=== PATIENT | male | born 1955 | race Caucasian/White ===

== ENCOUNTER → 2019-04-20 13:50 | Outpatient (CLI) | payer OTHER, SELFPAY ==
--- NOTE | 2019-04-20 14:01 | RAD_ITS ---
STUDY: X-RAY - LUMBAR SPINE REASON FOR EXAM: Male, 64 years old. SCIATICA TECHNIQUE: 4 view(s) of the lumbar spine were obtained. COMPARISON: None FINDINGS: Normal lumbar lordosis. There is no substantial scoliosis. There is a normal alignment of the vertebrae. There is mild, multilevel endplate spondylosis of the lumbar vertebrae. Normal disc space heights. There is no demonstrated fracture. There is no demonstrated spondylolysis of the pars interarticulares. The soft tissue structures are unremarkable. RAD/L/S Spine Min 4 Views IMPRESSION: Mild multilevel spondylosis otherwise normal x-ray examination of the lumbar spine. Electronically Signed: Angely Gibson MD at 0:29 EDT , Service support ,
== END ==
PROVIDERS: PCP Family Medicine; Referring Provider Family Medicine; Visit Provider Family Medicine
DX: M54.31 Sciatica, right side (principal)
CPT/HCPCS: 72110

== ENCOUNTER → 2020-02-15 14:22 | Outpatient (CLI) | payer OTHER, SELFPAY ==
--- NOTE | 2020-02-15 14:26 | RAD_ITS ---
STUDY: X-RAY - PELVIS AND RIGHT HIP REASON FOR EXAM: Right hip and upper leg pain, suspected osteoarthritis. TECHNIQUE: 2 views of the pelvis and hip. COMPARISON: None. FINDINGS: There are pelvic phleboliths. There is vascular calcification. Normal bilateral iliac wings, sacroiliac joints and visualized sacrum. Normal bilateral superior and inferior pubic rami. Normal pubic symphysis. Normal bilateral ischial tuberosities. Normal visualized femoral head. Normal acetabulum. There marginal osteophytes of the right femoral head and moderate to severe joint space narrowing of the right superior lateral hip joint. RAD/HIP, UNI W/ Pelvis 2-3 Views IMPRESSION: Right hip arthrosis. Electronically Signed: Khadar Monroy MD at 14:47 EST Tel , Service support ,
== END ==
PROVIDERS: PCP Family Medicine; Referring Provider Family Medicine; Visit Provider Family Medicine
DX: M25.551 Pain in right hip (principal)
CPT/HCPCS: 73502

== ENCOUNTER → 2022-03-06 | Outpatient (CLI) | payer MEDICARE, SELFPAY ==
[2022-03-06 12:21] LABS: Absolute Lymphocyte Count 2.21 X10^3/uL (0.83-4.51); Basophil# 0.04 X10^3/uL; Basophil% 0.7 % (0-1); Eosinophil# 0.19 X10^3/uL; Eosinophils% 3.2 % (0-5); Hematocrit 43.5 % (40-54); Hemoglobin 14.7 g/dL (13.0-16.5); Lymphocyte # 2.21 X10^3/ul (0.83-4.51); Lymphocyte % 37.4 % (19-41); Mean Corp Hgb Conc 33.8 g/dL (32-36); Mean Corpuscular Hgb 32.9 pg (27.0-32.0); Mean Corpuscular Volume 97.3 fL (80-94); Mean Platelet Vol. 9.5 fl (6.2-12.0); Monocyte# 0.47 X10^3/uL; NRBC Flagged by Analyzer 0 % (0-5); Neutrophil # 2.98 X10^3/uL (2.7-7.7); Neutrophil % 50.4 % (47-70); Platelet Count 244 K/mm3 (150-450); RBC Distribution Width CV 11.9 % (11.6-14.6); RBC Distribution Width SD 42.2 fl (35.1-43.9); Red Blood Count 4.47 M/mm3 (4.6-6.2); White Blood Count 5.9 K/mm3 (4.4-11.0)
[2022-03-06 12:41] LABS: ALB/GLOB Ratio 1.1 RATIO (0.9-2.4); AST(SGOT) 20 U/L (15-37); Alanine Aminotransfer ALT/SGPT 37 U/L (16-61); Albumin, Serum 3.6 g/dL (3.2-5.0); Alkaline Phosphatase 90 U/L (45-117); Anion Gap 7 (5-15); BUN 13 mg/dL (7-18); BUN/Creat Ratio 15.8 RATIO (10-20); Calcium,Total 8.5 mg/dL (8.5-10.1); Chloride 105 mmol/L (98-107); Cholesterol 177 mg/dL (200); Creatinine, Serum 0.82 mg/dL (0.70-1.30); EST Glomerular Filtration Rate 99 mL/min (>60); Est Glom Filt Rate - Afr Amer 120 mL/min (>60); Globulin 3.3 g/dL (2.2-4.2); Glucose 102 mg/dL (74-106); High Density Lipoprotein 35 mg/dL; PSA,Total - Annual Screen 0.49 ng/mL (0.00-4.00); Potassium 4.2 mmol/L (3.5-5.1); Protein, Total 6.9 g/dL (6.4-8.2); Sodium Level 139 mmol/L (136-145); Triglycerides 281 mg/dL; Very Low Density Lipoprotein 56 mg/dL (5-40)
== END | disposition home or self-care (01) ==
PROVIDERS: PCP Family Medicine; Visit Provider Family Medicine
DX: Z00.00 Encounter for general adult medical examination without abnormal findings (principal); Z12.5 Encounter for screening for malignant neoplasm of prostate; R53.83 Other fatigue; E78.5 Hyperlipidemia, unspecified
CPT/HCPCS: 36415; 80053; 80061; 84153; 85025; G0103

== ENCOUNTER 2022-08-11 12:39 | Outpatient (CLI) | payer MEDICARE, SELFPAY ==
--- NOTE | 2022-08-11 12:47 | RAD_ITS ---
EXAM: XR CHEST, 2 VIEWS CLINICAL INDICATION: SOB,FATIGUE,COUGH TECHNIQUE: Frontal and lateral views of the chest. COMPARISON: No relevant prior studies available. FINDINGS: LUNGS AND PLEURAL SPACES: Unremarkable. No consolidation or edema. No pneumothorax. No effusion. HEART: Unremarkable. Cardiac silhouette not enlarged. MEDIASTINUM: Mild air bronchograms visible in the infrahilar regions best seen on the lateral view. BONES/JOINTS: Unremarkable. SOFT TISSUES: Unremarkable. RAD/Chest PA and Lateral IMPRESSION: Mild airway thickening and air bronchograms in the lung bases best seen on the lateral view. Considerations include bronchitis and asthma. No focal infiltrates or effusions. Electronically Signed: Maryana Aguayo MD at 8:17 EDT ,
[2022-08-11 15:11] LABS: Absolute Lymphocyte Count 2.07 X10^3/uL (0.83-4.51); Absolute Neutrophil Count 4.3 X10^3/uL (2.0-7.7); Basophil# 0.02 X10^3/uL; Basophil% 0.3 % (0-1); Eosinophil# 0.14 X10^3/uL; Hematocrit 43.2 % (40-54); Hemoglobin 15.3 g/dL (13.0-16.5); Lymphocyte # 2.07 X10^3/ul (0.83-4.51); Lymphocyte % 29.7 % (19-41); Mean Corp Hgb Conc 35.4 g/dL (32-36); Mean Corpuscular Hgb 33.6 pg (27.0-32.0); Mean Corpuscular Volume 94.7 fL (80-94); Mean Platelet Vol. 9.3 fl (6.2-12.0); Monocyte# 0.48 X10^3/uL; Monocyte% 6.9 % (0-10); NRBC Flagged by Analyzer 0 % (0-5); Neutrophil # 4.25 X10^3/uL (2.7-7.7); Platelet Count 218 K/mm3 (150-450); RBC Distribution Width CV 11.7 % (11.6-14.6); RBC Distribution Width SD 40.1 fl (35.1-43.9); Red Blood Count 4.56 M/mm3 (4.6-6.2)
[2022-08-11 15:53] LABS: Vitamin B12 582 pg/mL (211-911); Vitamin D,25 Hydroxy 36.8 ng/mL
[2022-08-11 16:24] LABS: ALB/GLOB Ratio 0.8 RATIO (0.9-2.4); AST(SGOT) 24 U/L (15-37); Alanine Aminotransfer ALT/SGPT 29 U/L (16-61); Albumin, Serum 3.5 g/dL (3.2-5.0); Alkaline Phosphatase 90 U/L (45-117); Anion Gap 6 (5-15); BUN 17 mg/dL (7-18); BUN/Creat Ratio 20.7 RATIO (10-20); Chloride 106 mmol/L (98-107); Creatinine, Serum 0.82 mg/dL (0.70-1.30); EST Glomerular Filtration Rate 99 mL/min (>60); Est Glom Filt Rate - Afr Amer 120 mL/min (>60); Ferritin 341 ng/mL (26-388); Globulin 4.4 g/dL (2.2-4.2); Glucose 111 mg/dL (74-106); Iron 73 ug/dL (65-175); Potassium 3.8 mmol/L (3.5-5.1); Protein, Total 7.9 g/dL (6.4-8.2); Sodium Level 137 mmol/L (136-145); Thyroid Stim Hormone (TSH) 0.44 uIU/mL (0.358-3.74)
== END 2022-08-11 23:59 | disposition home or self-care (01) ==
LOC: MTLAB 12:40
PROVIDERS: PCP Family Medicine; Referring Provider Nurse Practitioner Family; Visit Provider Nurse Practitioner Family
DX: R06.02 Shortness of breath (principal); R53.83 Other fatigue; R05.9 Cough, unspecified
CPT/HCPCS: 36415; 71046; 80053; 82306; 82607; 82728; 83540; 84443; 85025

== ENCOUNTER → 2022-10-16 | Outpatient (CLI) | payer MEDICARE, SELFPAY ==
--- NOTE | 2022-10-16 14:55 | RAD_ITS ---
EXAM: XR LEFT HUMERUS, 2 OR MORE VIEWS CLINICAL INDICATION: PAIN TECHNIQUE: Frontal and lateral (4)views of the left humerus. COMPARISON: No relevant prior studies available. FINDINGS: BONES/JOINTS: Unremarkable. No acute fracture. No subluxation. Normal alignment. Preservation of the joint space. No sclerotic or destructive changes observed. SOFT TISSUES: Unremarkable. No soft tissue swelling or gas. Fat pads of elbow are not displaced. No radiopaque foreign body. OTHER: The visualized left upper lung is clear. Visualized left upper ribs are intact. RAD/Humerus min 2 Views IMPRESSION: Negative left humerus x-rays. Electronically Signed: Lino Ulloa MD at 22:54 EDT ,
== END | disposition home or self-care (01) ==
LOC: MTRAD 14:53
PROVIDERS: PCP Family Medicine; Visit Provider Family Medicine
DX: M79.602 Pain in left arm (principal)
CPT/HCPCS: 73060

== ENCOUNTER 2022-10-29 11:30 | Outpatient (RCR) | payer MEDICARE, SELFPAY ==
--- NOTE | 2022-10-21 09:47 | HP.PTEVAL_ITS ---
Patient's Visit Information Visit Information Visit Information: CORIE VILLARREAL is a 67 year old M referred to Physical Therapy by Dr. Reginaldo Russo DO with a diagnosis of Left Arm Pain. Date of Evaluation: 10/21/22 Physical Therapist: Brittani Pickering DPT Visit Plan Frequency: 2x /Week Duration: 4 Weeks Plan: Focus on Scapular Strength/Stabilization- US PRN HEP Given IE: Posture, scap retraction, pizza carry Subjective Subjective: Left arm pain that has been nagging him for a couple months that just isn't going away. He went to see his MD who took some x-rays which were negative- and he suggested PT. The discomfort is in the deltoid and humorous of the left arm. He has the pain when he is making his bed and and putting his towel around his back. Worst: 1/10. Its a more nagging pain. Agg: internal rotation and ER Best: 0/10. Eases: rubbing it. 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 Sleeping: if will wake him up if he is sleeping on that side. He rides his bicycle a lot- he takes it to [employer] or [employer] to ride. Retired- he sits a lot and his posture is not good. Right hand dominate. Objective Objective: Posture: Fh, RS- can correct but does not maintain- does have mild guarding of the left UE Gait: no deviation- good arm swing and trunk rotation Palpation: tender along upper trap from occiput to AC Joint, medial border of the scapula and the bicipital groove ROM: Cervical/Elbow/Wrist: WFL- Shoulder: Flexion: WFL pain at end range, Abd: full with pain from 110 degrees to end range, IR: WFL with pain at end range, ER: WFL pain at end range. Strength: [employer]:WFL Elbow: 4+/5, Shoulder: Flexion: 4+/5, Extn: 4+/5, Abd: 4/5, Add: 4+/5, IR: 4/5, ER: 4-/5. Scap: fair minus Special Tests L Shoulder Empty Can - SS: Positive L Shoulder Belly Press - SupScap: Positive L Shoulder Neer - Impingement: Positive L Shoulder Greer Wade - Impingement: Positive L Shoulder Biceps Load Test - Labrum: Positive Balance/Special Test Scores Quick DASH Score: 6.8175 Goals Goal 1:: Patient will be I with HEP and progression Goal Time Frame: 4-6 Weeks Goal 2:: Patient will maintain proper posture t/o session to demo increased scap s/s Goal Time Frame: 4-6 Weeks Goal 3:: Patient will report no pain for 1 week Goal Time Frame: 4-6 Weeks Goal 4:: Patient will report 80% better Goal Time Frame: 4-6 Weeks Rehabilitation Potential Physical Therapy Diagnosis: Patient presents with hypomobility- he has decreased UE ROM, scapular strength/stabilization and muscular endurance leading to poor posture and increased pain with ADL's. Rehabilitation Potential: Good Anticipated Interventions Patient/Client Instruction: Educate patient on: Benefits of Fitness Program Therapeutic Exercise to Include: Strength training, Endurance training, Balance training, Coordination, Agility training, Body mechanics, Postural training, Flexibilty training, Gait and locomotor training, Neuromotor development, Passive ROM, Active ROM, Dynamic Lumbar Stabilization and Scapular Strength/Stabilization For the Purpose of:: To improve muscle performance and motor function TENS: Yes Cryotherapy (ice pack, ice massage): Yes Thermo therapy (hot pack): Yes Ultrasound (thermal/non thermal): Yes Text: Thank you for the opportunity to evaluate your patient. For Medicare and Medicare HMO plans, please review the plan of care and approve it. It will need to be FAXED BACK to us at [phone] for Medicare purposes. For Medicare only, by signing this I certify the plan of care. Please let me know if there are questions or concerns regarding this plan of care. Physician Signature: Date:
== END 2022-10-29 19:00 | disposition home or self-care (01) ==
LOC: PT 11:30
PROVIDERS: PCP Family Medicine; Referring Provider Family Medicine; Visit Provider Family Medicine
DX: M79.602 Pain in left arm (principal)
CPT/HCPCS: 97110; 97162

== ENCOUNTER → 2023-07-08 | Outpatient (CLI) | payer OTHER, SELFPAY ==
[2023-07-08 15:15] LABS: Absolute Lymphocyte Count 1.95 X10^3/uL (0.83-4.51); Absolute Neutrophil Count 3.4 X10^3/uL (2.0-7.7); Basophil# 0.03 X10^3/uL; Basophil% 0.5 % (0-1); Eosinophil# 0.16 X10^3/uL; Eosinophils% 2.6 % (0-5); Hematocrit 42.3 % (40-54); Hemoglobin 14.4 g/dL (13.0-16.5); Lymphocyte # 1.95 X10^3/ul (0.83-4.51); Lymphocyte % 32.3 % (19-41); Mean Corpuscular Hgb 33.2 pg (27.0-32.0); Mean Corpuscular Volume 97.5 fL (80-94); Mean Platelet Vol. 9.5 fl (6.2-12.0); Monocyte# 0.47 X10^3/uL; Monocyte% 7.8 % (0-10); NRBC Flagged by Analyzer 0 % (0-5); Neutrophil # 3.43 X10^3/uL (2.7-7.7); Neutrophil % 56.8 % (47-70); Platelet Count 238 K/mm3 (150-450); RBC Distribution Width CV 11.8 % (11.6-14.6); RBC Distribution Width SD 42.4 fl (35.1-43.9); Red Blood Count 4.34 M/mm3 (4.6-6.2)
[2023-07-08 16:16] LABS: ALB/GLOB Ratio 1.1 RATIO (0.9-2.4); AST(SGOT) 20 U/L (15-37); Alanine Aminotransfer ALT/SGPT 24 U/L (16-61); Albumin, Serum 3.7 g/dL (3.2-5.0); Alkaline Phosphatase 88 U/L (45-117); Anion Gap 7 (5-15); BUN 14 mg/dL (7-18); Calcium,Total 8.8 mg/dL (8.5-10.1); Chloride 107 mmol/L (98-107); Cholesterol 187 mg/dL (200); Creatinine, Serum 0.88 mg/dL (0.70-1.30); EST Glomerular Filtration Rate 92 mL/min (>60); Est Glom Filt Rate - Afr Amer 111 mL/min (>60); Globulin 3.5 g/dL (2.2-4.2); Glucose 93 mg/dL (74-106); High Density Lipoprotein 40 mg/dL; PSA,Total - Annual Screen 0.52 ng/mL (0.00-4.00); Potassium 3.7 mmol/L (3.5-5.1); Protein, Total 7.2 g/dL (6.4-8.2); Sodium Level 140 mmol/L (136-145); Triglycerides 170 mg/dL; Very Low Density Lipoprotein 34 mg/dL (5-40)
== END | disposition home or self-care (01) ==
LOC: BFHLAB 11:11
PROVIDERS: PCP Family Medicine; Referring Provider Family Medicine; Visit Provider Family Medicine
DX: R53.83 Other fatigue (principal); E78.5 Hyperlipidemia, unspecified; Z12.5 Encounter for screening for malignant neoplasm of prostate
CPT/HCPCS: 36415; 80053; 80061; 84153; 85025; G0103

== ENCOUNTER → 2024-10-14 | Outpatient (CLI) | payer OTHER, SELFPAY ==
--- OUTSIDE RECORDS SUMMARY | 2024-10-14 11:30 | XMS RPT_ITS | CCD ---
Author Organization [facility] Care Team Providers Care Wire Hanger Name Role Phone REFERRING, ROHINI WO ID Unavailable Unavailable NOLA RUSSO. Unavailable Unavailable NOLA RUSSO. Unavailable Unavailable Nola Russo Attending Unavailable Nola Rusos Primary Care Unavailable Nola Russo Attending Unavailable Nola Russo Referring Unavailable Nola Russo Primary Care Unavailable Nola Russo Referring Unavailable Nola Russo Primary Care Unavailable Nola Russo Attending Unavailable Rosangela Collado Attending Unavailable Rosangela Collado Referring Unavailable Nola Russo Primary Care Unavailable (Historical), No Pcp Primary Care Provider Unava ilable Medications Current Medications Medication Drug Class(es) Dates Sig (Normalized) Sig (Original) triamcinolone acetonide 1 mg/ml topical cream (1 source) Corticosteroid Start: 04-15-2024 End: 04-22-2024 triamcinolone acetonide (KENALOG) 0.1 % cream Indications: Contact dermatitis due to other agent, unspecified contact dermatitis type Apply 1 application to affected area two times a day for 7 days. Apply to affected area. Location: right shoulder 15 g 04/15/2024 04/22/2024 Active Completed/Discontinued Medications Medication Drug Class(es) Dates Sig (Normalized) Sig (Original) benzonatate 100 mg oral capsule (1 source) Non-narcotic Antitussive Start: 05-26-2017 End: 04-15-2024 benzonatate (TESSALON PERLE) 100 mg capsule Indications: Cough Take 1-2 capsules tid prn 30 capsule 05/26/2017 04/15/2024 Discontinued (Other) Problems Active Problems Problem Classification Problem Date Documented Da te Episodic/Chronic Administrative/social admission (4 sources) Patient encounter status; Translations: [Encounter for pre-employment examination] 12-16-2017 Episodic Allergic reactions (1 source) Contact dermatitis; Translations: [Unspecified contact dermatitis due to other agents] 04-15-2024 Episodic Hyperplasia of prostate (1 source) Benign prostatic hypertrophy without outflow obstruction; Translations: [Benign prostatic hyperplasia without lower urinary tract symptoms] Onset: 05-25-2007 08-20-2023 Chronic Malaise and fatigue (1 source) Other fatigue; Translations: [Other fatigue] Onset: 07-16-2023 Episodic Unclassified (1 source) Unknown / UNK(Unknown) Onset: 08-14-2016 Past or Other Problems Problem Classification Problem Date Documented Da te Episodic/Chronic Genitourinary symptoms and ill-defined conditions (1 source) Nocturia; Translations: [Nocturia] Onset: 05-25-2007 08-20-2023 Episodic Nonspecific chest pain (1 source) Chest pain; Translations: [Chest pain, unspecified] Onset: 05-25-2007 12-05-2014 Episodic Other connective tissue disease (1 source) Pain in left arm; Translations: [Pain in left arm] Onset: 03-26-2023 Episodic Other lower respiratory disease (1 source) Shortness of breath; Translations: [Shortness of breath] Onset: 08-18-2022 Episodic Unclassified (1 source) HL STRESS TEST, ROSADO Onset: 08-14-2016 Results Test Name Value Interpretation Reference Range Facility [facility] 04-15-2024 CN Office Visit (UCTR) ---- CORIE VILLARREAL ([id number]) 1955 M Date Time Provider Department 04/15/24 10:00 AM FLORENCIO VILLANUEVA [facility] During your visit today, we recorded the following information about you: Temperature Pulse Respiration Blood pressure 97 degrees 72/minute 20/minute 152/87 Weight 88 kg Florencio Villanueva MD 04/15/2024 10:28 AM Signed [facility] Subjective Corie Villarreal is a 69 year old male. Patient presents with: Rash: R side of back of neck x 3 days Rash on the back of the right shoulder. Initially had right neck pain (kink) 3 days ago. He took ibuprofen and his rubbed some things (including frankincense). The pain and headache is gone. There is some pruritus. No extension of symptoms to the arm. Review of Systems Constitutional: Negative for fever. Neurological: Negative for numbness and headaches. Objective BP 152/87 Pulse 72 Temp 36.1 ?C (97 ?F) Resp 20 Wt 88 kg (194 lb 0.1 oz) SpO2 98% BMI 26.31 kg/m? Physical Exam Constitutional: General: He is not in acute distress. Eyes: Extraocular Movements: Extraocular movements intact. Pupils: Pupils are equal, round, and reactive to light. Musculoskeletal: Cervical back: Normal range of motion and neck supple. No tenderness. Skin: Comments: 10-15cm faint reddish dry papular patch tight posterior trapezius without vesicle, induration, or ulceration. Neurological: Mental Status: He is alert. ASSESSMENT/PLAN: 1. Contact dermatitis due to other agent, unspecified contact dermatitis type - ICD9: 692.89, ICD10: L25.8 Allergic vs irritant contact dermatitis from topical therapies for musculoskeletal right neck pain. Rash distribution and character are not typical of zoster or a contagious rash. - TRIAMCINOLONE ACETONIDE 0.1 % TOPICAL CREAM He plans to get the shingles vaccine at a pharmacy. Discussed rational for vaccination and dosage schedule. Florencio Villanueva MD Allergies As of Date: 04/15/2024 (No Known Allergies) Date Reviewed: 04/15/2024 Reviewed by: Amy Lee LPN - Fully Assessed Reason for Visit: Rash [1087] Cmt: R side of back of neck x 3 days Primary Visit Diagnosis:Contact dermatitis due to other agent, unspecified contact dermatitis type [L25.8] Order(s):triamcinol one acetonide (KENALOG) 0.1 % creamApply 1 application to affected area two times a day for 7 days. Apply to affected area. Location: right shoulderDisp: 15 gRfl: 0 Prescriptions as of 04/15/2024 - triamcinolone acetonide (KENALOG) 0.1 % cream Apply 1 application to affected area two times a day for 7 days. Apply to affected area. Location: right shoulder Problem List As Of Date 04/15/2024 Noted Resolved Chest pain [R07.9] 05/25/2007 BPH W/O URINARY OBS/LUTS [N40.0] 05/25/2007 NOCTURIA [R35.1] 05/25/2007 Prescriptions ordered this encounter Disp Refills Start End TRIAMCINOLONE ACETONIDE 0.1 % TOPICA* 15 g 0 04/15/2024 04/22/2024 Route: TOPICAL Sig: Apply 1 application to affected area two times a day for 7 days. Apply to affected area. Location: right shoulder Medications Discontinued During This Encounter Prescriptions - benzonatate (TESSALON PERLE) 100 mg capsule (Discontinued) Reported on 04/15/2024 Encounter Status:Closed by FLORENCIO VILLANUEVA on 04/15/24 Normal [facility] CBC W/Diff, Automatedon 05-2 Absolute Lymph 1.95 X10 3/uL Normal 0.83-4.51 [facility] Comment on above: Performed By: #### L 501.9910, L500.4050, L500.4100, L100.0100 #### [facility] [address] [place], [address] Absolute Neut 3.4 X10 3/uL Normal 2.0-7.7 [facility] Comment on above: Performed By: #### L 501.9910, L500.4050, L500.4100, L100.0100 #### [facility] [address] [place], [address] Basophils/100 WBC (Bld) 0.5 % Normal 0-1 [facility] Comment on above: Performed By: #### L 501.9910, L500.4050, L500.4100, L100.0100 #### [facility] [address] [place], [address] Eosinophils/100 WBC (Bld) 2.6 % Normal 0-5 [facility] Comment on above: Performed By: #### L 501.9910, L500.4050, L500.4100, L100.0100 #### [facility] [address] [place], [address] Erythrocyte distribution width (RBC) [Ratio] 11.8 % Normal 11.6-14.6 [facility] Comment on above: Performed By: #### L 501.9910, L500.4050, L500.4100, L100.0100 #### [facility] [address] [place], [address] Hematocrit (Bld) [Volume fraction] 42.3 % Normal 40-54 [facility] Comment on above: Performed By: #### L 501.9910, L500.4050, L500.4100, L100.0100 #### [facility] [address] [place], [address] Hemoglobin (Bld) [Mass/Vol] 14.4 g/dL Normal 13.0-16.5 [facility] Comment on above: Performed By: #### L 501.9910, L500.4050, L500.4100, L100.0100 #### [facility] [address] [place], [address] IG% 0.000 Normal 0.0-0.9 [facility] Comment on above: Result Comment: IG% - Immature Granulocytes (promyelocytes, myelocytes and metamyelocytes) > 1% indicates that a LEFT SHIFT is Present. Performed By: #### L 501.9910, L500.4050, L500.4100, L100.0100 #### [facility] [address] [place], [address] Lymphocytes/100 WBC (Bld) 32.3 % Normal 19-41 [facility] Comment on above: Performed By: #### L 501.9910, L500.4050, L500.4100, L100.0100 #### [facility] [address] [place], [address] MCH (RBC) [Entitic mass] 33.2 pg High 27.0-32.0 [facility] Comment on above: Performed By: #### L 501.9910, L500.4050, L500.4100, L100.0100 #### [facility] [address] [place], [address] MCHC (RBC) [Mass/Vol] 34.0 g/dL Normal 32-36 [facility] Comment on above: Performed By: #### L 501.9910, L500.4050, L500.4100, L100.0100 #### [facility] [address] [place], [address] MCV (RBC) [Entitic vol] 97.5 fL High 80-94 [facility] Comment on above: Performed By: #### L 501.9910, L500.4050, L500.4100, L100.0100 #### [facility] [address] [place], [address] Monocytes/100 WBC (Bld) 7.8 % Normal 0-10 [facility] Comment on above: Performed By: #### L 501.9910, L500.4050, L500.4100, L100.0100 #### [facility] [address] [place], [address] Neutrophils/100 WBC (Bld) 56.8 % Normal 47-70 [facility] Comment on above: Performed By: #### L 501.9910, L500.4050, L500.4100, L100.0100 #### [facility] [address] [place], [address] Nucleated RBC (Bld) [#/Vol] 0 10*3/uL Normal 0-5 [facility] Comment on above: Performed By: #### L 501.9910, L500.4050, L500.4100, L100.0100 #### [facility] [address] [place], [address] Platelet mean volume (Bld) [Entitic vol] 9.5 fL Normal 6.2-12.0 [facility] Comment on above: Performed By: #### L 501.9910, L500.4050, L500.4100, L100.0100 #### [facility] [address] [place], [address] Platelets (Bld) [#/Vol] 238 10*3/uL Normal 150-450 [facility] Comment on above: Performed By: #### L 501.9910, L500.4050, L500.4100, L100.0100 #### [facility] [address] [place], [address] RBC (Bld) [#/Vol] 4.34 10*6/uL Low 4.6-6.2 [facility] Comment on above: Performed By: #### L 501.9910, L500.4050, L500.4100, L100.0100 #### [facility] [address] [place], [address] RDW SD 42.4 fl Normal 35.1-43.9 [facility] Comment on above: Performed By: #### L 501.9910, L500.4050, L500.4100, L100.0100 #### [facility] [address] [place], [address] WBC (Bld) [#/Vol] 6.0 10*3/uL Normal 4.4-11.0 [facility] Comment on above: Performed By: #### L 501.9910, L500.4050, L500.4100, L100.0100 #### [facility] [address] [place], [address] Comprehensive Metabolic Prof ilon 07-08-2023 Albumin [Mass/Vol] 3.7 g/dL Normal 3.2-5.0 [facility] Comment on above: Performed By: #### L 501.9910, L500.4050, L500.4100, L100.0100 #### [facility] [address] [place], [address] Albumin/Globulin [Mass ratio] 1.1 {ratio} Normal 0.9-2.4 [facility] Comment on above: Performed By: #### L 501.9910, L500.4050, L500.4100, L100.0100 #### [facility] [address] [place], [address] ALK P 88 U/L Normal 45-117 [facility] Comment on above: Performed By: #### L 501.9910, L500.4050, L500.4100, L100.0100 #### [facility] [address] [place], [address] ALT [Catalytic activity/Vol] 24 U/L Normal 16-61 [facility] Comment on above: Performed By: #### L 501.9910, L500.4050, L500.4100, L100.0100 #### [facility] [address] [place], [address] AST [Catalytic activity/Vol] 20 U/L Normal 15-37 [facility] Comment on above: Performed By: #### L 501.9910, L500.4050, L500.4100, L100.0100 #### [facility] [address] [place], [address] Bilirubin [Mass/Vol] 0.50 mg/dL Normal 0.20-1.00 [facility] Comment on above: Result Comment: For patients on eltrombopag therapy, use of Dimension [place] TBIL is not recommended. Performed By: #### L 501.9910, L500.4050, L500.4100, L100.0100 #### [facility] [address] [place], [address] BUN/CRE 16.0 RATIO Normal 10-20 [facility] Comment on above: Performed By: #### L 501.9910, L500.4050, L500.4100, L100.0100 #### [facility] [address] [place], [address] CA,Total 8.8 mg/dL Normal 8.5-10.1 [facility] Comment on above: Performed By: #### L 501.9910, L500.4050, L500.4100, L100.0100 #### [facility] [address] [place], [address] Chloride [Moles/Vol] 107 mmol/L Normal 98-107 [facility] Comment on above: Performed By: #### L 501.9910, L500.4050, L500.4100, L100.0100 #### [facility] [address] [place], [address] CO2 [Moles/Vol] 26.0 mmol/L Normal 21.0-32.0 [facility] Comment on above: Performed By: #### L 501.9910, L500.4050, L500.4100, L100.0100 #### [facility] [address] [place], [address] Creatinine [Mass/Vol] 0.88 mg/dL Normal 0.70-1.30 [facility] Comment on above: Result Comment: The validity of the calculated GFR GFRAA in patients over 70 years has not been determined. Clinical correlation is essential. Performed By: #### L 501.9910, L500.4050, L500.4100, L100.0100 #### [facility] [address] [place], [address] EST GFR - AA 111 mL/min Normal >60 [facility] Comment on above: Result Comment: Afri can [place] GFR Calc Performed By: #### L 501.9910, L500.4050, L500.4100, L100.0100 #### [facility] [address] [place], [address] GAP 7 Normal 5-15 [facility] Comment on above: Performed By: #### L 501.9910, L500.4050, L500.4100, L100.0100 #### [facility] [address] [place], [address] GFR/1.73 sq M.predicted among non-blacks MDRD (S/P/Bld) [Vol rate/Area] 92 mL/min/{1.73_m2} Normal >60 [facility] Comment on above: Result Comment: Non- GFR Calc Performed By: #### L 501.9910, L500.4050, L500.4100, L100.0100 #### [facility] [address] [place], [address] Globulin (S) [Mass/Vol] 3.5 g/dL Normal 2.2-4.2 [facility] Comment on above: Performed By: #### L 501.9910, L500.4050, L500.4100, L100.0100 #### [facility] [address] [place], [address] Glucose [Mass/Vol] 93 mg/dL Normal 74-106 [facility] Comment on above: Performed By: #### L 501.9910, L500.4050, L500.4100, L100.0100 #### [facility] [address] [place], [address] Potassium [Moles/Vol] 3.7 mmol/L Normal 3.5-5.1 [facility] Comment on above: Performed By: #### L 501.9910, L500.4050, L500.4100, L100.0100 #### [facility] [address] [place], [address] Sodium [Moles/Vol] 140 mmol/L Normal 136-145 [facility] Comment on above: Performed By: #### L 501.9910, L500.4050, L500.4100, L100.0100 #### [facility] [address] [place], [address] T PROT 7.2 g/dL Normal 6.4-8.2 [facility] Comment on above: Performed By: #### L 501.9910, L500.4050, L500.4100, L100.0100 #### [facility] [address] [place], [address] Urea nitrogen [Mass/Vol] 14 mg/dL Normal 7-18 [facility] Comment on above: Performed By: #### L 501.9910, L500.4050, L500.4100, L100.0100 #### [facility] [address] [place], [address] Lipid Profileon 07-08-2023 Cholesterol [Mass/Vol] 187 mg/dL Normal 200 [facility] Comment on above: Result Comment: <200 mg/dL Desirable 200-240 mg/dL Borderline >240 mg/dL High Risk Performed By: #### L 501.9910, L500.4050, L500.4100, L100.0100 #### [facility] [address] [place], [address] Cholesterol in HDL [Mass/Vol] 40 mg/dL Normal [facility] Comment on above: Result Comment: The drugs N-Acetylcysteine and Metamizole may falsely depress this assay. Reference Range HDL <40 mg/dL Low HDL Cholesterol HDL >or= 60 mg/dL High HDL Cholesterol Performed By: #### L 501.9910, L500.4050, L500.4100, L100.0100 #### [facility] [address] [place], [address] Cholesterol in LDL [Mass/Vol] 113 mg/dL Normal 0-130 [facility] Comment on above: Performed By: #### L 501.9910, L500.4050, L500.4100, L100.0100 #### [facility] [address] [place], [address] Cholesterol in VLDL [Mass/Vol] 34 mg/dL Normal 5-40 [facility] Comment on above: Performed By: #### L 501.9910, L500.4050, L500.4100, L100.0100 #### [facility] [address] [place], [address] Triglyceride [Mass/Vol] 170 mg/dL Normal [facility] Comment on above: Result Comment: The drugs N-Acetylcysteine and Metamizole may falsely depress this assay. Serum Triglycerides Reference Interval Normal <150 mg/dL Borderline high 150 - 199 mg/dL High 200 - 499 mg/dL Very High > or = 500 mg/dL Performed By: #### L 501.9910, L500.4050, L500.4100, L100.0100 #### [facility] [address] [place], [address] PSA,Total - Annual Screenon 07-08-2023 PSA,TOT SCREEN 0.52 ng/mL Normal 0.00-4.00 [facility] Comment on above: Result Comment: This test was performed using the TPSA assay method for the [employer] chemistry system. Values obtained with different assay methods cannot be used interchangably. When changing PSA assays in the course of monitoring a patient, additional sequential testing should be carried out to confirm baseline values. Performed By: #### L 501.9910, L500.4050, L500.4100, L100.0100 #### [facility] [place], [address] Inital Evaluation (1) - PTon 10-21-2022 Inital Evaluation (1) - PT [facility] Physical [facility] [address] [place] [address] / REHABILITATION SERVICES INITIAL EVALUATION MR#: [id number] Acct: [id number] Name: CORIE VILLARREAL Rep #: [id number] : 1955 67 From: Brittani Pickering DPT Referring Dr.: Dr. Nola Russo DO Status: RE [facility] Insurance: [facility] [id number] SELF PAY INSURANCE Patient's Visit Information Visit Information Visit Information: CORIE VILLARREAL is a 67 year old M referred to Physical Therapy by Dr. Nola Russo DO with a diagnosis of Left Arm Pain. Date of Evaluation: 10/21/22 Physical Therapist: Brittani Pickering DPT Visit Plan Frequency: 2x /Week Duration: 4 Weeks Plan: Focus on Scapular Strength/Stabilizat ion- US PRN HEP Given IE: Posture, scap retraction, pizza carry Subjective Subjective: Left arm pain that has been nagging him for a couple months that just isn't going away. He went to see his MD who took some x-rays which were negative- and he suggested PT. The discomfort is in the deltoid and humorous of the left arm. He has the pain when he is making his bed and and putting his towel around his back. Worst: 1/10. Its a more nagging pain. Agg: internal rotation and ER Best: 0/10. Eases: rubbing it. 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 Sleeping: if will wake him up if he is sleeping on that side. He rides his bicycle a lot- he takes it to [employer] or [employer] to ride. Retired- he sits a lot and his posture is not good. Right hand dominate. Objective Objective: Posture: Fh, RS- can correct but does not maintain- does have mild guarding of the left UE Gait: no deviation- good arm swing and trunk rotation Palpation: tender along upper trap from occiput to AC Joint, medial border of the scapula and the bicipital groove ROM: Cervical/Elbow/Wris t: WFL- Shoulder: Flexion: WFL pain at end range, Abd: full with pain from 110 degrees to end range, IR: WFL with pain at end range, ER: WFL pain at end range. Strength: Child Neurologist:WFL Elbow: 4+/5, Shoulder: Flexion: 4+/5, Extn: 4+/5, Abd: 4/5, Add: 4+/5, IR: 4/5, ER: 4-/5. Scap: fair minus Special Tests L Shoulder Empty Can - SS: Positive L Shoulder Belly Press - SupScap: Positive L Shoulder Neer - Impingement: Positive L Shoulder Greer Wade - Impingement: Positive L Shoulder Biceps Load Test - Labrum: Positive Balance/Special Test Scores Quick DASH Score: 6.8175 Goals Goal 1:: Patient will be I with HEP and progression Goal Time Frame: 4-6 Weeks Goal 2:: Patient will maintain proper posture t/o session to demo increased scap s/s Goal Time Frame: 4-6 Weeks Goal 3:: Patient will report no pain for 1 week Goal Time Frame: 4-6 Weeks Goal 4:: Patient will report 80% better Goal Time Frame: 4-6 Weeks Rehabilitation Potential Physical Therapy Diagnosis: Patient presents with hypomobility- he has decreased UE ROM, scapular strength/stabilizat ion and muscular endurance leading to poor posture and increased pain with ADL's. Rehabilitation Potential: Good Anticipated Interventions Patient/Client Instruction: Educate patient on: Benefits of Fitness Program Therapeutic Exercise to Include: Strength training, Endurance training, Balance training, Coordination, Agility training, Body mechanics, Postural training, Flexibilty training, Gait and locomotor training, Neuromotor development, Passive ROM, Active ROM, Dynamic Lumbar Stabilization and Scapular Strength/Stabilizat ion For the Purpose of:: To improve muscle performance and motor function TENS: Yes Cryotherapy (ice pack, ice massage): Yes Thermo therapy (hot pack): Yes Ultrasound (thermal/non thermal): Yes Text: Thank you for the opportunity to evaluate your patient. For Medicare and Medicare HMO plans, please review the plan of care and approve it. It will need to be FAXED BACK to us at [phone] for Medicare purposes. For Medicare only, by signing this I certify the plan of care. Please let me know if there are questions or concerns regarding this plan of care. Physician Signature: __Date: 10/21/22 0947 CC: Dr. Nola Russo DO ELR Signed Normal [facility] Humerus min 2 Viewson 2022 Humerus min 2 Views [facility] Imaging Services [address] [place] [address] Humerus min 2 Views MR#: [id number] Acct: [id number] Name: CORIE VILLARREAL Rep #: [id number] : 1955 M 67 From: Lino guillen MD PCP: Dr. Nola Russo DO Status: REG CLI Study: Humerus min 2 Views Date of Exam: 10/16/22 Exam# [id number] Ordering Dr: Nola Russo DO EXAM: XR LEFT HUMERUS, 2 OR MORE VIEWS CLINICAL INDICATION: PAIN TECHNIQUE: Frontal and lateral (4)views of the left humerus. COMPARISON: No relevant prior studies available. FINDINGS: BONES/JOINTS: Unremarkable. No acute fracture. No subluxation. Normal alignment. Preservation of the joint space. No sclerotic or destructive changes observed. SOFT TISSUES: Unremarkable. No soft tissue swelling or gas. Fat pads of elbow are not displaced. No radiopaque foreign body. OTHER: The visualized left upper lung is clear. Visualized left upper ribs are intact. RAD/Humerus min 2 Views IMPRESSION: Negative left humerus x-rays. Electronically Signed: Lino Ulloa MD at 22:54 EDT , CC: Dr. Nola Russo, Acquisition Associate: Signed Normal [facility] Absolute lymphocyte countOrd ered By: Rosangela Collado on 08-11-2022 Lymphocytes Auto (Unsp spec) [#/Vol] 2.07 10*3/uL 0.83-4.51 [facility] Basophil percentageOrdered B y: Rosangela Collado on 08-11-2022 Basophils/100 WBC (Bld) 0.3 % 0-1 [facility] Bilirubin [Mass/Vol] 0.70 mg/dL 0.20-1.00 [facility] Comment on above: For patients on eltr ombopag therapy, use of Dimension [place] TBIL is not recommended. Chloride [Moles/Vol] 106 mmol/L 98-107 [facility] Eosinophils/100 WBC (Bld) 2.0 % 0-5 [facility] Glucose [Mass/Vol] 111 mg/dL 74-106 [facility] Comment on above: Fasting Glucose resu lt from 100 to 125 mg/dL suggests IMPAIRED HOMEOSTASIS per A.D.A. criteria. Neutrophils (Bld) [#/Vol] 4.3 10*3/uL 2.0-7.7 [facility] Neutrophils/100 WBC (Bld) 61.0 % 47-70 [facility] Potassium [Moles/Vol] 3.8 mmol/L 3.5-5.1 [facility] Protein [Mass/Vol] 7.9 g/dL 6.4-8.2 [facility] Sodium [Moles/Vol] 137 mmol/L 136-145 [facility] WBC (Bld) [#/Vol] 7.0 10*3/uL 4.4-11.0 [facility] Blood erythrocytes count (nu mber/volume)Ordered By: Rosangela Collado on 08-11-2022 RBC (Bld) [#/Vol] 4.56 10*6/uL 4.6-6.2 [facility] Blood hemoglobin measurement (mass/volume)Ordered By: Rosangela Collado on 08-11-2022 Hemoglobin (Bld) [Mass/Vol] 15.3 g/dL 13.0-16.5 [facility] Blood lymphocytes/100 leukoc ytesOrdered By: Rosangela Collado on 08-11-2022 Lymphocytes/100 WBC (Bld) 29.7 % 19-41 [facility] Blood monocytes/100 leukocyt esOrdered By: Rosangela Collado on 08-11-2022 Monocytes/100 WBC (Bld) 6.9 % 0-10 [facility] Blood platelet mean volumeOr dered By: Rosangela Collado on 08-11-2022 Platelet mean volume (Bld) [Entitic vol] 9.3 fL 6.2-12.0 [facility] CBC W/Diff, Automatedon 07 Absolute Lymph 2.07 X10 3/uL Normal 0.83-4.51 [facility] Comment on above: Performed By: #### L 500.4050, L503.6550, L503.6150, L503.0105, L506.1000, L100.0100, L501.9520 #### [facility] [address] [place], [address] Absolute Neut 4.3 X10 3/uL Normal 2.0-7.7 [facility] Comment on above: Performed By: #### L 500.4050, L503.6550, L503.6150, L503.0105, L506.1000, L100.0100, L501.9520 #### [facility] [address] [place], [address] Basophils/100 WBC (Bld) 0.3 % Normal 0-1 [facility] Comment on above: Performed By: #### L 500.4050, L503.6550, L503.6150, L503.0105, L506.1000, L100.0100, L501.9520 #### [facility] [address] [place], [address] Eosinophils/100 WBC (Bld) 2.0 % Normal 0-5 [facility] Comment on above: Performed By: #### L 500.4050, L503.6550, L503.6150, L503.0105, L506.1000, L100.0100, L501.9520 #### [facility] [address] [place], [address] Erythrocyte distribution width (RBC) [Ratio] 11.7 % Normal 11.6-14.6 [facility] Comment on above: Performed By: #### L 500.4050, L503.6550, L503.6150, L503.0105, L506.1000, L100.0100, L501.9520 #### [facility] [address] [place], [address] Hematocrit (Bld) [Volume fraction] 43.2 % Normal 40-54 [facility] Comment on above: Performed By: #### L 500.4050, L503.6550, L503.6150, L503.0105, L506.1000, L100.0100, L501.9520 #### [facility] [address] [place], [address] Hemoglobin (Bld) [Mass/Vol] 15.3 g/dL Normal 13.0-16.5 [facility] Comment on above: Performed By: #### L 500.4050, L503.6550, L503.6150, L503.0105, L506.1000, L100.0100, L501.9520 #### [facility] [address] [place], [address] IG% 0.100 Normal 0.0-0.9 [facility] Comment on above: Result Comment: IG% - Immature Granulocytes (promyelocytes, myelocytes and metamyelocytes) > 1% indicates that a LEFT SHIFT is Present. Performed By: #### L 500.4050, L503.6550, L503.6150, L503.0105, L506.1000, L100.0100, L501.9520 #### [facility] [address] [place], [address] Lymphocytes/100 WBC (Bld) 29.7 % Normal 19-41 [facility] Comment on above: Performed By: #### L 500.4050, L503.6550, L503.6150, L503.0105, L506.1000, L100.0100, L501.9520 #### [facility] [address] [place], [address] MCH (RBC) [Entitic mass] 33.6 pg High 27.0-32.0 [facility] Comment on above: Performed By: #### L 500.4050, L503.6550, L503.6150, L503.0105, L506.1000, L100.0100, L501.9520 #### [facility] [address] [place], [address] MCHC (RBC) [Mass/Vol] 35.4 g/dL Normal 32-36 [facility] Comment on above: Performed By: #### L 500.4050, L503.6550, L503.6150, L503.0105, L506.1000, L100.0100, L501.9520 #### [facility] [address] [place], [address] MCV (RBC) [Entitic vol] 94.7 fL High 80-94 [facility] Comment on above: Performed By: #### L 500.4050, L503.6550, L503.6150, L503.0105, L506.1000, L100.0100, L501.9520 #### [facility] [address] [place], [address] Monocytes/100 WBC (Bld) 6.9 % Normal 0-10 [facility] Comment on above: Performed By: #### L 500.4050, L503.6550, L503.6150, L503.0105, L506.1000, L100.0100, L501.9520 #### [facility] [address] [place], [address] Neutrophils/100 WBC (Bld) 61.0 % Normal 47-70 [facility] Comment on above: Performed By: #### L 500.4050, L503.6550, L503.6150, L503.0105, L506.1000, L100.0100, L501.9520 #### [facility] [address] [place], [address] Nucleated RBC (Bld) [#/Vol] 0 10*3/uL Normal 0-5 [facility] Comment on above: Performed By: #### L 500.4050, L503.6550, L503.6150, L503.0105, L506.1000, L100.0100, L501.9520 #### [facility] [address] [place], [address] Platelet mean volume (Bld) [Entitic vol] 9.3 fL Normal 6.2-12.0 [facility] Comment on above: Performed By: #### L 500.4050, L503.6550, L503.6150, L503.0105, L506.1000, L100.0100, L501.9520 #### [facility] [address] [place], [address] Platelets (Bld) [#/Vol] 218 10*3/uL Normal 150-450 [facility] Comment on above: Performed By: #### L 500.4050, L503.6550, L503.6150, L503.0105, L506.1000, L100.0100, L501.9520 #### [facility] [address] [place], [address] RBC (Bld) [#/Vol] 4.56 10*6/uL Low 4.6-6.2 [facility] Comment on above: Performed By: #### L 500.4050, L503.6550, L503.6150, L503.0105, L506.1000, L100.0100, L501.9520 #### [facility] [address] [place], [address] RDW SD 40.1 fl Normal 35.1-43.9 [facility] Comment on above: Performed By: #### L 500.4050, L503.6550, L503.6150, L503.0105, L506.1000, L100.0100, L501.9520 #### [facility] [address] [facility] [place], [address] WBC (Bld) [#/Vol] 7.0 10*3/uL Normal 4.4-11.0 [facility] Comment on above: Performed By: #### L 500.4050, L503.6550, L503.6150, L503.0105, L506.1000, L100.0100, L501.9520 #### [facility] [address] [place], [address] Chest PA and Lateralon 08-11 Chest PA and Lateral [facility] [address] [place] [address] Chest PA and Lateral MR#: [id number] Acct: [id number] Name: CORIE VILLARREAL Rep #: [id number] : 1955 M 67 From: Maryana Aguayo MD PCP: Dr. Nola Russo, DO Status: REG CLI Study: Chest PA and Lateral Date of Exam: 08/11/22 Exam# [id number] Ordering Dr: Rosangela Collado COLLECTION TELLER-C EXAM: XR CHEST, 2 VIEWS CLINICAL INDICATION: SOB,FATIGUE,COUGH TECHNIQUE: Frontal and lateral views of the chest. COMPARISON: No relevant prior studies available. FINDINGS: LUNGS AND PLEURAL SPACES: Unremarkable. No consolidation or edema. No pneumothorax. No effusion. HEART: Unremarkable. Cardiac silhouette not enlarged. MEDIASTINUM: Mild air bronchograms visible in the infrahilar regions best seen on the lateral view. BONES/JOINTS: Unremarkable. SOFT TISSUES: Unremarkable. RAD/Chest PA and Lateral IMPRESSION: Mild airway thickening and air bronchograms in the lung bases best seen on the lateral view. Considerations include bronchitis and asthma. No focal infiltrates or effusions. Electronically Signed: Maryana Aguayo MD at 8:17 EDT , CC: FALGUNI Collado; Dr. Nola Russo, Acquisition Associate: Signed Normal [facility] Comprehensive Metabolic Prof ilon 08-11-2022 Albumin [Mass/Vol] 3.5 g/dL Normal 3.2-5.0 [facility] Comment on above: Performed By: #### L 500.4050, L503.6550, L503.6150, L503.0105, L506.1000, L100.0100, L501.9520 #### [facility] [address] [place], [address] Albumin/Globulin [Mass ratio] 0.8 {ratio} Low 0.9-2.4 [facility] Comment on above: Performed By: #### L 500.4050, L503.6550, L503.6150, L503.0105, L506.1000, L100.0100, L501.9520 #### [facility] [address] [place], [address] ALK P 90 U/L Normal 45-117 [facility] Comment on above: Performed By: #### L 500.4050, L503.6550, L503.6150, L503.0105, L506.1000, L100.0100, L501.9520 #### [facility] [address] [place], [address] ALT [Catalytic activity/Vol] 29 U/L Normal 16-61 [facility] Comment on above: Performed By: #### L 500.4050, L503.6550, L503.6150, L503.0105, L506.1000, L100.0100, L501.9520 #### [facility] [address] [place], [address] AST [Catalytic activity/Vol] 24 U/L Normal 15-37 [facility] Comment on above: Performed By: #### L 500.4050, L503.6550, L503.6150, L503.0105, L506.1000, L100.0100, L501.9520 #### [facility] [address] [place], [address] Bilirubin [Mass/Vol] 0.70 mg/dL Normal 0.20-1.00 [facility] Comment on above: Result Comment: For patients on eltrombopag therapy, use of Dimension [place] TBIL is not recommended. Performed By: #### L 500.4050, L503.6550, L503.6150, L503.0105, L506.1000, L100.0100, L501.9520 #### [facility] [address] [place], [address] BUN/CRE 20.7 RATIO High 10-20 [facility] Comment on above: Performed By: #### L 500.4050, L503.6550, L503.6150, L503.0105, L506.1000, L100.0100, L501.9520 #### [facility] [address] [place], [address] CA,Total 9.0 mg/dL Normal 8.5-10.1 [facility] Comment on above: Performed By: #### L 500.4050, L503.6550, L503.6150, L503.0105, L506.1000, L100.0100, L501.9520 #### [facility] [address] [place], [address] Chloride [Moles/Vol] 106 mmol/L Normal 98-107 [facility] Comment on above: Performed By: #### L 500.4050, L503.6550, L503.6150, L503.0105, L506.1000, L100.0100, L501.9520 #### [facility] [address] [place], [address] CO2 [Moles/Vol] 25.0 mmol/L Normal 21.0-32.0 [facility] Comment on above: Performed By: #### L 500.4050, L503.6550, L503.6150, L503.0105, L506.1000, L100.0100, L501.9520 #### [facility] [address] [place], [address] Creatinine [Mass/Vol] 0.82 mg/dL Normal 0.70-1.30 [facility] Comment on above: Result Comment: The validity of the calculated GFR GFRAA in patients over 70 years has not been determined. Clinical correlation is essential. Performed By: #### L 500.4050, L503.6550, L503.6150, L503.0105, L506.1000, L100.0100, L501.9520 #### [facility] [address] [place], [address] EST GFR - AA 120 mL/min Normal >60 [facility] Comment on above: Result Comment: Afri can [place] GFR Calc Performed By: #### L 500.4050, L503.6550, L503.6150, L503.0105, L506.1000, L100.0100, L501.9520 #### [facility] [address] [place], [address] GAP 6 Normal 5-15 [facility] Comment on above: Performed By: #### L 500.4050, L503.6550, L503.6150, L503.0105, L506.1000, L100.0100, L501.9520 #### [facility] [address] [place], [address] GFR/1.73 sq M.predicted among non-blacks MDRD (S/P/Bld) [Vol rate/Area] 99 mL/min/{1.73_m2} Normal >60 [facility] Comment on above: Result Comment: Non- GFR Calc Performed By: #### L 500.4050, L503.6550, L503.6150, L503.0105, L506.1000, L100.0100, L501.9520 #### [facility] [address] [place], [address] Globulin (S) [Mass/Vol] 4.4 g/dL High 2.2-4.2 [facility] Comment on above: Performed By: #### L 500.4050, L503.6550, L503.6150, L503.0105, L506.1000, L100.0100, L501.9520 #### [facility] [address] [place], [address] Glucose [Mass/Vol] 111 mg/dL High 74-106 [facility] Comment on above: Result Comment: Fast ing Glucose result from 100 to 125 mg/dL suggests IMPAIRED HOMEOSTASIS per A.D.A. criteria. Performed By: #### L 500.4050, L503.6550, L503.6150, L503.0105, L506.1000, L100.0100, L501.9520 #### [facility] [address] [place], [address] Potassium [Moles/Vol] 3.8 mmol/L Normal 3.5-5.1 [facility] Comment on above: Performed By: #### L 500.4050, L503.6550, L503.6150, L503.0105, L506.1000, L100.0100, L501.9520 #### [facility] [address] [place], [address] Sodium [Moles/Vol] 137 mmol/L Normal 136-145 [facility] Comment on above: Performed By: #### L 500.4050, L503.6550, L503.6150, L503.0105, L506.1000, L100.0100, L501.9520 #### [facility] [address] [place], [address] T PROT 7.9 g/dL Normal 6.4-8.2 [facility] Comment on above: Performed By: #### L 500.4050, L503.6550, L503.6150, L503.0105, L506.1000, L100.0100, L501.9520 #### [facility] [address] [place], [address] Urea nitrogen [Mass/Vol] 17 mg/dL Normal 7-18 [facility] Comment on above: Performed By: #### L 500.4050, L503.6550, L503.6150, L503.0105, L506.1000, L100.0100, L501.9520 #### [facility] [address] [place], [address] Determination of erythrocyte mean corpuscular volume (MCV)Ordered By: Rosangela Collado on 08-11-2022 MCV (RBC) [Entitic vol] 94.7 fL 80-94 [facility] Ferritinon 08-11-2022 Ferritin [Mass/Vol] 341 ng/mL Normal 26-388 [facility] Comment on above: Performed By: #### L 501.9910, L500.4050, L500.4100, L100.0100 #### [facility] [address] [place], [place], [id number] Hematocrit Auto (Bld) [Volum e fraction]Ordered By: Rosangela Tobias on 08-11-2022 Hematocrit (Bld) [Volume fraction] 43.2 % 40-54 [facility] Ironon 08-11-2022 Iron [Mass/Vol] 73 ug/dL Normal 65-175 [facility] Comment on above: Performed By: #### L 500.4050, L503.6550, L503.6150, L503.0105, L506.1000, L100.0100, L501.9520 #### [facility] [address] [place], [address] Iron measurement (mass/mass) Ordered By: Rosangelaming Collado on 08-11-2022 Iron (Unsp spec) [Mass/Mass] 73 ug/dL 65-175 [facility] - Chemistry and C hemistry - challengeOrdered By: Liberty Tobias on 08-11-2022 ALP [Catalytic activity/Vol] 90 U/L 45-117 [facility] ALT [Catalytic activity/Vol] 29 U/L 16-61 [facility] CO2 [Moles/Vol] 25.0 mmol/L 21.0-32.0 [facility] Cobalamin (Vitamin B12) [Mass/Vol] 582 pg/mL 211-911 [facility] Globulin (S) [Mass/Vol] 4.4 g/dL 2.2-4.2 [facility] Urea nitrogen/Creatinine [Mass ratio] 20.7 mg/mg 10-20 [facility] - Hematology and Cell countsOrdered By: Rosangelaming Collado on 08-11-2022 Erythrocyte distribution width (RBC) [Entitic vol] 40.1 fL 35.1-43.9 [facility] Erythrocyte distribution width (RBC) [Ratio] 11.7 % 11.6-14.6 [facility] Immature granulocytes/100 WBC (Bld) 0.100 % 0.0-0.9 [facility] Comment on above: IG% - Immature Granu locytes (promyelocytes, myelocytes and metamyelocytes) > 1% indicates that a LEFT SHIFT is Present. MCH (RBC) [Entitic mass] 33.6 pg 27.0-32.0 [facility] Nucleated RBC/100 WBC (Bld) [Ratio] 0 % 0-5 [facility] MCHC Auto (RBC) [Mass/Vol]Or dered By: Rosangela Collado on 08-11-2022 MCHC (RBC) [Mass/Vol] 35.4 g/dL 32-36 [facility] No Panel InformationOrdered By: Rosangela Collado on 08-11-2022 Estimated GFR (MDRD) Amer 120 mL/min >60 [facility] Comment on above: GFR Calc Estimated GFR (MDRD) Non-Af Amer 99 mL/min >60 [facility] Comment on above: Non- GFR Calc Thyroid Stimulating Hormone (TSH) 0.44 uIU/mL 0.358-3.74 [facility] Vitamin D 25-Hydroxy 36.8 ng/mL [facility] Comment on above: Vitamin D 25(OH) Sta tus Range Deficiency <20 ng/mL (50nmol/L) Insufficiency 20 - 30 ng/mL (50 - 75 nmol/L) Sufficiency 30 - 100 ng/mL (75 - 250 nmol/L) Toxicity >100 ng/mL (>250 nmol/L) Platelets bldOrdered By: Saad Collado on 08-11-2022 Platelets (Bld) [#/Vol] 218 10*3/uL 150-450 [facility] Serum or plasma albumin donta urement (mass/volume)Ordered By: Rosangela Collado on 08-11-2022 Albumin [Mass/Vol] 3.5 g/dL 3.2-5.0 [facility] Serum or plasma albumin/glob ulin mass ratioOrdered By: Rosangela Collado on 08-11-2022 Albumin/Globulin [Mass ratio] 0.8 {ratio} 0.9-2.4 [facility] Serum or plasma calcium donta urement (mass/volume)Ordered By: Rosangela Collado on 08-11-2022 Calcium [Mass/Vol] 9.0 mg/dL 8.5-10.1 [facility] Serum or plasma creatinine m easurement (mass/volume)Ordered By: Rosangela Collado on 08-11-2022 Creatinine [Mass/Vol] 0.82 mg/dL 0.70-1.30 [facility] Comment on above: The validity of the calculated GFR & GFRAA in patients over 70 years has not been determined. Clinical correlation is essential. Serum or plasma ferritin shanell surement (mass/volume)Ordered By: Rosangela Collado on 08-11-2022 Ferritin [Mass/Vol] 341 ng/mL 26-388 [facility] Serum or plasma urea nitroge n measurement (mass/volume)Ordered By: Rosangela Collado on 08-11-2022 Urea nitrogen [Mass/Vol] 17 mg/dL 7-18 [facility] Thin prep Papanicolaou smear with manual screeningOrdered By: Rosangelaming Collado on 08-11-2022 Thin prep Papanicolaou smear with manual screening 24 U/L 15-37 [facility] Thin prep Papanicolaou smear with manual screening 6 5-15 [facility] Thyroid Stim Hormone (TSH)on 08-11-2022 TSH 0.44 uIU/mL Normal 0.358-3.74 [facility] Comment on above: Performed By: #### L 500.4050, L503.6550, L503.6150, L503.0105, L506.1000, L100.0100, L501.9520 #### [facility] [address] [place], [place], [id number] Vitamin B12on 08-11-2022 Cobalamin (Vitamin B12) [Mass/Vol] 582 pg/mL Normal 211-911 [facility] Comment on above: Performed By: #### L 500.4050, L503.6550, L503.6150, L503.0105, L506.1000, L100.0100, L501.9520 #### [facility] [address] [place], [place], [id number] Vitamin D,25 Hydroxyon 08-11 Vitamin D 25-OH 36.8 ng/mL Normal [facility] Comment on above: Result Comment: Mini min D 25(OH) Status Range Deficiency <20 ng/mL (50nmol/L) Insufficiency 20 - 30 ng/mL (50 - 75 nmol/L) Sufficiency 30 - 100 ng/mL (75 - 250 nmol/L) Toxicity >100 ng/mL (>250 nmol/L) Performed By: #### L 500.4050, L503.6550, L503.6150, L503.0105, L506.1000, L100.0100, L501.9520 #### [facility] [address] [place], [place], [address] Absolute lymphocyte countOrd ered By: Dr. Russo on 03-06-2022 Lymphocytes Auto (Unsp spec) [#/Vol] 2.21 10*3/uL 0.83-4.51 [facility] Basophil percentageOrdered B y: Dr. Russo on 03-06-2022 Basophils/100 WBC (Bld) 0.7 % 0-1 [facility] Bilirubin [Mass/Vol] 0.40 mg/dL 0.20-1.00 [facility] Comment on above: For patients on eltr ombopag therapy, use of Dimension [place] TBIL is not recommended. Chloride [Moles/Vol] 105 mmol/L 98-107 [facility] Cholesterol [Mass/Vol] 177 mg/dL <200 [facility] Comment on above: <200 mg/dL Desirable 200-240 mg/dL Borderline >240 mg/dL High Risk Eosinophils/100 WBC (Bld) 3.2 % 0-5 [facility] Glucose [Mass/Vol] 102 mg/dL 74-106 [facility] Comment on above: Fasting Glucose resu lt from 100 to 125 mg/dL suggests IMPAIRED HOMEOSTASIS per A.D.A. criteria. Neutrophils (Bld) [#/Vol] 3.0 10*3/uL 2.0-7.7 [facility] Neutrophils/100 WBC (Bld) 50.4 % 47-70 [facility] Potassium [Moles/Vol] 4.2 mmol/L 3.5-5.1 [facility] Protein [Mass/Vol] 6.9 g/dL 6.4-8.2 [facility] Sodium [Moles/Vol] 139 mmol/L 136-145 [facility] Triglyceride [Mass/Vol] 281 mg/dL <199 [facility] Comment on above: The drugs N-Acetylcy steine and Metamizole may falsely depress this assay.Serum Triglycerides Reference Interval Normal <150 mg/dL Borderline high 150 - 199 mg/dL High 200 - 499 mg/dL Very High > or = 500 mg/dL WBC (Bld) [#/Vol] 5.9 10*3/uL 4.4-11.0 [facility] Blood erythrocytes count (nu mber/volume)Ordered By: Dr. Russo on 03-06-2022 RBC (Bld) [#/Vol] 4.47 10*6/uL 4.6-6.2 [facility] Blood hemoglobin measurement (mass/volume)Ordered By: Dr. Russo on 03-06-2022 Hemoglobin (Bld) [Mass/Vol] 14.7 g/dL 13.0-16.5 [facility] Blood lymphocytes/100 leukoc ytesOrdered By: Dr. Russo on 03-06-2022 Lymphocytes/100 WBC (Bld) 37.4 % 19-41 [facility] Blood monocytes/100 leukocyt esOrdered By: Dr. Russo on 03-06-2022 Monocytes/100 WBC (Bld) 8.0 % 0-10 [facility] Blood platelet mean volumeOr dered By: Dr. Russo on 03-06-2022 Platelet mean volume (Bld) [Entitic vol] 9.5 fL 6.2-12.0 [facility] Determination of erythrocyte mean corpuscular volume (MCV)Ordered By: Dr. Russo on 03-06-2022 MCV (RBC) [Entitic vol] 97.3 fL 80-94 [facility] Hematocrit Auto (Bld) [Volum e fraction]Ordered By: Dr. Russo on 03-06-2022 Hematocrit (Bld) [Volume fraction] 43.5 % 40-54 [facility] - Chemistry and C hemistry - challengeOrdered By: Dr. Russo on 03-06-2022 ALP [Catalytic activity/Vol] 90 U/L 45-117 [facility] ALT [Catalytic activity/Vol] 37 U/L 16-61 [facility] CO2 [Moles/Vol] 27.0 mmol/L 21.0-32.0 [facility] Globulin (S) [Mass/Vol] 3.3 g/dL 2.2-4.2 [facility] Urea nitrogen/Creatinine [Mass ratio] 15.8 mg/mg 10-20 [facility] - Hematology and Cell countsOrdered By: Dr. Russo on 03-06-2022 Erythrocyte distribution width (RBC) [Entitic vol] 42.2 fL 35.1-43.9 [facility] Erythrocyte distribution width (RBC) [Ratio] 11.9 % 11.6-14.6 [facility] Immature granulocytes/100 WBC (Bld) 0.300 % 0.0-0.9 [facility] Comment on above: IG% - Immature Granu locytes (promyelocytes, myelocytes and metamyelocytes) > 1% indicates that a LEFT SHIFT is Present. MCH (RBC) [Entitic mass] 32.9 pg 27.0-32.0 [facility] Nucleated RBC/100 WBC (Bld) [Ratio] 0 % 0-5 [facility] MCHC Auto (RBC) [Mass/Vol]Or dered By: Dr. Russo on 03-06-2022 MCHC (RBC) [Mass/Vol] 33.8 g/dL 32-36 [facility] No Panel InformationOrdered By: Dr. Russo on 03-06-2022 Estimated GFR (MDRD) Amer 120 mL/min >60 [facility] Comment on above: GFR Calc Estimated GFR (MDRD) Non-Af Amer 99 mL/min >60 [facility] Comment on above: Non- GFR Calc Prostate Specific Antigen Screen 0.49 ng/mL 0.00-4.00 [facility] Comment on above: This test was perfor med using the TPSA assay method for theDiAudioTagsion chemistry system. Values obtained with differentassay methods cannot be used interchangably.When changing PSA assays in the course of monitoring apatient, additional sequential testing should be carriedout to confirm baseline values. Platelets bldOrdered By: Dr. Russo on 03-06-2022 Platelets (Bld) [#/Vol] 244 10*3/uL 150-450 [facility] Serum or plasma albumin donta urement (mass/volume)Ordered By: Dr. Russo on 03-06-2022 Albumin [Mass/Vol] 3.6 g/dL 3.2-5.0 [facility] Serum or plasma albumin/glob ulin mass ratioOrdered By: Dr. Russo on 03-06-2022 Albumin/Globulin [Mass ratio] 1.1 {ratio} 0.9-2.4 [facility] Serum or plasma calcium donta urement (mass/volume)Ordered By: Dr. Russo on 03-06-2022 Calcium [Mass/Vol] 8.5 mg/dL 8.5-10.1 [facility] Serum or plasma cholesterol in HDL measurement (mass/volume)Ordered By: Dr. Russo on 03-06-2022 Cholesterol in HDL [Mass/Vol] 35 mg/dL >40 [facility] Comment on above: The drugs N-Acetylcy steine and Metamizole may falsely depress this assay. Reference Range HDL <40 mg/dL Low HDL Cholesterol HDL >or= 60 mg/dL High HDL Cholesterol Serum or plasma cholesterol in VLDL measurement (mass/volume)Ordered By: Dr. Russo on 03-06-2022 Cholesterol in VLDL [Mass/Vol] 56 mg/dL 5-40 [facility] Serum or plasma creatinine m easurement (mass/volume)Ordered By: Dr. Russo on 03-06-2022 Creatinine [Mass/Vol] 0.82 mg/dL 0.70-1.30 [facility] Comment on above: The validity of the calculated GFR & GFRAA in patients over 70 years has not been determined. Clinical correlation is essential. Serum or plasma low density lipoprotein (LDL) cholesterol measurement (mass/volume)Ordered By: Dr. Russo on 03-06-2022 Cholesterol in LDL [Mass/Vol] 86 mg/dL 0-130 [facility] Serum or plasma urea nitroge n measurement (mass/volume)Ordered By: Dr. Russo on 03-06-2022 Urea nitrogen [Mass/Vol] 13 mg/dL 7-18 [facility] Thin prep Papanicolaou smear with manual screeningOrdered By: Dr. Russo on 03-06-2022 Thin prep Papanicolaou smear with manual screening 20 U/L 15-37 [facility] Thin prep Papanicolaou smear with manual screening 7 5-15 [facility] XR FLUORO 1-2 HRS TECH TIMEo n 06-19-2020 XR FLUORO 1-2 HRS TECH TIME ORIGINAL Images acquired, not reported on this accession number. Normal [facility] ([place]) XR HIP RIGHT W/PELVIS 4 VIEW Son 06-19-2020 XR HIP RIGHT W/PELVIS 4 VIEWS ORIGINAL XR XR HIP RIGHT W/PELVIS 3 VIEWS, CLINICAL STATEMENT: Status Post Arthroplasty , check prosthesis alignment COMPARISON: None FINDINGS: The RIGHT hip joint has been replaced with a prosthesis that show satisfactory alignment. There are expected postoperative changes in the soft tissues. The bony pelvis is intact. 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 IMPRESSION: Expected postoperative appearance following RIGHT hip replacement surgery. Interpreted By: Charli Marc MD Preliminary Report By: Charli Marc MD Electronically Signed By: Charli Marc MD Dictated Date: 06/19/2020 9:34:58 AM Prelim Date: 06/19/2020 9:34:58 AM Sign Date: 06/19/2020 9:35:26 AM Ordering Provider:Abran Angeles Normal [facility] ([place]) .Auto Diffon 06-11-2020 Basophil, Absolute 0.00 10 3/mcL Normal 0.00-0.19 [facility] ([place]) Comment on above: Performed By: #### B MP, GFR #### [place] [address] #### CBC, ADIFF, ANEU #### [address] [address] Basophils/100 WBC (Bld) 0.5 % Normal 0.0-2.5 A [facility] ([place]) Comment on above: Performed By: #### B MP, GFR #### [place] [address] #### CBC, ADIFF, ANEU #### [address] [address] Eosinophil, Absolute 0.10 10 3/mcL Normal 0.00-0.40 A [facility] ([place]) Comment on above: Performed By: #### B MP, GFR #### [address] [address] #### CBC, ADIFF, ANEU #### [address] [address] Eosinophils/100 WBC (Bld) 1.9 % Normal 0.0-7.0 [facility] ([place]) Comment on above: Performed By: #### B MP, GFR #### [place] [address] #### CBC, ADIFF, ANEU #### [address] [address] Lymphocyte, Absolute 2.10 10 3/mcL Normal 0.77-3.85 A [facility] ([place]) Comment on above: Performed By: #### B MP, GFR #### [place] [address] #### CBC, ADIFF, ANEU #### [address] [address] Lymphocytes/100 WBC (Bld) 29.9 % Normal 10.0-50.0 [facility] ([place]) Comment on above: Performed By: #### B MP, GFR #### [place] [address] #### CBC, ADIFF, ANEU #### [address] [address] Monocyte, Absolute 0.40 10 3/mcL Normal 0.15-1.00 [facility] ([place]) Comment on above: Performed By: #### B MP, GFR #### [place] [address] #### CBC, ADIFF, ANEU #### [address] [address] Monocytes/100 WBC (Bld) 6.3 % Normal 1.7-13.0 A [facility] ([place] Comment on above: Performed By: #### B MP, GFR #### [place] [address] #### CBC, ADIFF, ANEU #### [address] [address] Neutrophils/100 WBC (Bld) 61.4 % Normal 37.0-80.0 [facility] ([place]) Comment on above: Performed By: #### Ewelina MP, GFR #### [address] [address] #### ROBERT PAIGE, ANEU #### [place] [address] [address] .GFRon 06-11-2020 GFR Non- 100 ml/min/1.73sqm Normal [facility] ([place]) Comment on above: Result Comment: GFR Population mean for , Non- Americans Ages 20-29 = 116 mL/min/1.73 sq.m. Ages 30-39 = 107 mL/min/1.73 sq.m. Ages 40-49 = 99 mL/min/1.73 sq.m. Ages 50-59 = 93 mL/min/1.73 sq.m. Ages 60-69 = 85 mL/min/1.73 sq.m. Ages 70+ = 75 mL/min/1.73 sq.m. Chronic Kidney Disease: Less than 60 mL/min/1.73 square meters End Stage Renal Disease: Less than 15 mL/min/1.73 square meters Performed By: #### Ewelina MP, GFR #### [address] [address] #### ROBERT PAIGE, ANEU #### [address] [address] GFR 121 ml/min/1.73sqm Normal [facility] ([place]) Comment on above: Result Comment: GFR Population mean for , Non- Americans Ages 20-29 = 116 mL/min/1.73 sq.m. Ages 30-39 = 107 mL/min/1.73 sq.m. Ages 40-49 = 99 mL/min/1.73 sq.m. Ages 50-59 = 93 mL/min/1.73 sq.m. Ages 60-69 = 85 mL/min/1.73 sq.m. Ages 70+ = 75 mL/min/1.73 sq.m. Chronic Kidney Disease: Less than 60 mL/min/1.73 square meters End Stage Renal Disease: Less than 15 mL/min/1.73 square meters Performed By: #### B MP, GFR #### [place] [address] #### CBC, ADIFF, ANEU #### [address] [address] .NEUABSon 06-11-2020 Neutrophil, Absolute 4.30 10 3/mcL Normal 2.85-6.16 A [facility] ([place]) Comment on above: Performed By: #### B MP, GFR #### [place] [address] #### CBC, ADIFF, ANEU #### [address] [address] BMPon 06-11-2020 BUN/Creatinine Ratio 24 ratio Normal 7-27 [facility] ([place]) Comment on above: Performed By: #### B MP, GFR #### [place] [address] #### CBC, ADIFF, ANEU #### [address] [address] Calcium [Mass/Vol] 8.7 mg/dL Normal 8.4-10.2 [facility] ([place]) Comment on above: Performed By: #### B MP, GFR #### [place] [address] #### CBC, ADIFF, ANEU #### [address] [address] Chloride [Moles/Vol] 103 mmol/L Normal 98-107 [facility] ([place]) Comment on above: Performed By: #### B MP, GFR #### [place] [address] #### CBC, ADIFF, ANEU #### [address] [address] CO2 [Moles/Vol] 27 mmol/L Normal 23-31 [facility] ([place]) Comment on above: Performed By: #### B MP, GFR #### [address] [address] #### CBC, ADIFF, ANEU #### [address] [address] Creatinine [Mass/Vol] 0.78 mg/dL Normal 0.70-1.30 [facility] ([place]) Comment on above: Performed By: #### B MP, GFR #### [address] [address] #### CBC, ADIFF, ANEU #### [address] [address] Electrolyte Balance 11.0 mEq/L Normal [facility] ([place]) Comment on above: Performed By: #### B MP, GFR #### [address] [address] #### CBC, ADIFF, ANEU #### [address] [address] Glucose [Mass/Vol] 125 mg/dL High 80-115 [facility] ([place]) Comment on above: Performed By: #### B MP, GFR #### [place] [address] #### CBC, ADIFF, ANEU #### [address] [address] Potassium [Moles/Vol] 4.1 mmol/L Normal 3.5-5.1 [facility] ([place]) Comment on above: Performed By: #### B MP, GFR #### [place] [address] #### CBC, ADIFF, ANEU #### [address] [address] Sodium [Moles/Vol] 141 mmol/L Normal 136-145 [facility] ([place]) Comment on above: Performed By: #### B MP, GFR #### [address] [address] #### CBC, ADIFF, ANEU #### [address] [address] Urea nitrogen [Mass/Vol] 19 mg/dL High 7-18 [facility] ([place] Comment on above: Performed By: #### B MP, GFR #### [place] [address] #### CBC, ADIFF, ANEU #### [address] [address] CBCon 06-11-2020 Erythrocyte distribution width (RBC) [Ratio] 12.6 % Normal 11.5-14.5 [facility] ([place]) Comment on above: Order Comment: Pre-A dmission Testing Performed By: #### B MP, GFR #### [place] [address] #### CBC, ADIFF, ANEU #### [address] [address] Hematocrit (Bld) [Volume fraction] 42.9 % Normal 42.0-52.0 [facility] ([place] Comment on above: Order Comment: Pre-A dmission Testing Performed By: #### B MP, GFR #### [place] [address] #### CBC, ADIFF, ANEU #### [address] [address] Hgb 15.1 G/dL Normal 14.0-18.0 [facility] ([place]) Comment on above: Order Comment: Pre-A dmission Testing Performed By: #### B MP, GFR #### [place] [address] #### CBC, ADIFF, ANEU #### [address] [address] MCH (RBC) [Entitic mass] 33.7 pg High 27.0-31.2 [facility] ([place] Comment on above: Order Comment: Pre-A dmission Testing Performed By: #### B MP, GFR #### [place] [address] #### CBC, ADIFF, ANEU #### [place] [id number] MCHC 35.1 G/dL Normal 31.8-35.4 [facility] ([place] Comment on above: Order Comment: Pre-A dmission Testing Performed By: #### B MP, GFR #### [address] [address] #### CBC, ADIFF, ANEU #### [address] [address] MCV (RBC) [Entitic vol] 95.9 fL High 80.0-94.0 A [facility] ([place]) Comment on above: Order Comment: Pre-A dmission Testing Performed By: #### B MP, GFR #### [place] [address] #### CBC, ADIFF, ANEU #### [address] [address] Platelet 257 10 3/mcL Normal 130-400 [facility] ([place]) Comment on above: Order Comment: Pre-A dmission Testing Performed By: #### B MP, GFR #### [place] [address] #### CBC, ADIFF, ANEU #### [address] [address] Platelet mean volume (Bld) [Entitic vol] 7.8 fL Normal 7.4-10.4 [facility] ([place]) Comment on above: Order Comment: Pre-A dmission Testing Performed By: #### B MP, GFR #### [place] [address] #### CBC, ADIFF, ANEU #### [address] [address] RBC 4.47 10 6/mcL Normal 4.04-6.13 [facility] ([place]) Comment on above: Order Comment: Pre-A dmission Testing Performed By: #### B MP, GFR #### [place] [address] #### CBC, ADIFF, ANEU #### [address] [address] WBC 7.00 10 3/mcL Normal 4.60-10.80 [facility] ([place]) Comment on above: Order Comment: Pre-A dmission Testing Performed By: #### B MP, GFR #### [facility] [address] [place] [address] #### CBC, ADIFF, ANEU #### [facility] [address] [place], [place] [address] Vital Signs Date Time Vital Sign Value Performing Clinician Faci lity 04-15-2024 10:04-0500 Body mass index (BMI) [Ratio] 26.31 kg/m2 Florencio Villanueva MD Work Phone: [facility] 04-15-2024 10:04-0500 Body temperature 97 [degF] Florencio Villanueva MD Work Phone: [facility] 04-15-2024 10:04-0500 Body weight 88 kg Florencio Villanueva MD Work Phone: [facility] 04-15-2024 10:04-0500 Diastolic blood pressure 87 mm[Hg] Florencio Villanueva MD Work Phone: [facility] 04-15-2024 10:04-0500 Heart rate 72 /min Florencio Villanueva MD Work Phone: [facility] 04-15-2024 10:04-0500 Respiratory rate 20 /min Florencio Villanueva MD Work Phone: [facility] 04-15-2024 10:04-0500 SaO2% (BldA) [Mass fraction] 98 % Florencio Villanueva MD Work Phone: [facility] 04-15-2024 10:04-0500 Systolic blood pressure 152 mm[Hg] Florencio Villanueva MD Work Phone: [facility] Encounters Encounter Date Encounter Type Care Provider Facility Start: 04-15-2024 End: 04-15-2024 ambulatory Facility:[facility] Start: 04-15-2024 End: 04-15-2024 Patient encounter procedure Florencio Villanueva MD Work Phone: [facility] Comment on above: Contact dermatitis d ue to other agent, unspecified contact dermatitis type (Primary Dx) Start: 07-08-2023 End: 07-08-2023 ambulatory [facility] Facility:[facility] Start: 10-29-2022 End: 10-29-2022 ambulatory [facility] Facility:[facility] Start: 10-23-2022 Registered [facility]ring [facility] Work Phone: Start: 10-16-2022 End: 10-16-2022 ambulatory [facility] Work Phone: Start: 10-16-2022 End: 10-16-2022 Patient encounter procedure [facility] [place] Work Phone: Start: 10-16-2022 End: 10-16-2022 ambulatory [facility] Facility:[facility] Start: 08-11-2022 End: 08-11-2022 ambulatory [facility] Work Phone: Start: 08-11-2022 End: 08-11-2022 [facility] Start: 08-11-2022 End: 08-11-2022 ambulatory Rosangelaming Collado Facility:[facility] Start: 03-06-2022 End: 03-06-2022 ambulatory [facility] Work Phone: Start: 03-06-2022 End: 03-06-2022 Patient encounter procedure [facility] Start: 08-14-2016 End: 08-15-2016 Ambulatory PHY WO ID REFERRING Facility:[facility] Procedures Date Procedure Procedure Detail Performing Clinician Start: 10-16-2022 Plain x-ray of humerus Start: 08-11-2022 Plain chest X-ray Start: 02-12-2015 Colonoscopy Florencio villa MD Work Phone: Start: 02-26-2010 Lipid 1996 panel - S micaela or Plasma Florencio Villanueva MD Work Phone: Plan of Treatment Date Care Activity Detail Author Start: 04-21-2024 Covid-19 Vaccine ( season) Covid-19 Vaccine () [facility] Start: 02-10-2024 Advance Directive Discussion Advance Directive Discussion [facility] Start: 03-06-2023 Pneumococcal Vaccine : 50+ (2 of 2 - PCV) Pneumococcal Vaccine: 50+ (2 of 2 - PCV) [facility] Start: 02-13-2020 Screening for malign ant neoplasm of colon [facility] Start: 02-26-2015 Lipid panel Lipid Screening [facility] Start: 02-26-2013 Diabetes Screening Diabetes Screenin g [facility] Start: 05-26-2007 Urine microalbumin profile DTaP,Tdap,Td Vaccine (1 - Tdap) [facility] Start: 02-05-2004 Shingrix Vaccine (1 of 2) Shingrix V accine (1 of 2) [facility] Start: 1999 Screening for malign ant neoplasm of colon [facility] Start: 02-05-1972 Anxiety Screening Anxiety Screening [facility] Start: 02-05-1972 Depression Screening Depression Scre ening [facility] Start: 02-05-1972 Hepatitis C screening Hepatitis C [facility] Immunizations Immunization Date Immunization Notes Care Provider Lisa blue 05-25-2007 tetanus and diphther ia toxoids, adsorbed, preservative free, for adult use (2 Lf of tetanus toxoid and 2 Lf of diphtheria toxoid) Florencio Villanueva MD Work Phone: [facility] Payers Date Payer Category Payer Medicare (Managed Care) O VETO DVANTAGE O [id number] 2023 Unknown [id number] 2022 Self-pay [id number] 2022 Unknown [id number] 2016 Unknown [id number] Private Health Insurance [facility] [id number] Unknown IZABELLA [id number] Unknown [id number] Unknown [id number] Unknown [id number] Unknown [id number] Social History Date Type Detail Facility Tobacco smoking stat [email or web address]IS Unknown if ever smoked [facility] Work Phone: Start: 1955 Sex Assigned At Male W [facility] Start: 10-11-2010 Tobacco smoking stat [facility] Never smoked tobacco [facility] Work Phone: Start: 10-11-2010 Tobacco use and exposure Smokeless tobacco non-user [facility] Start: 04-15-2024 Alcoholic beverage intake Current drinker of alcohol (finding) [facility] Start: 01-15-2020 End: 04-15-2024 History of Social function [facility] Start: 01-15-2020 End: 04-15-2024 Tobacco use panel [facility] National Score (1-10 0), lower number is lower risk Not on file [facility] Start: 01-23-2015 [facility] Start: 1955 Sex assigned at Not on file [facility] Progress note 04-15-2024 Note Date & Type Note Facility 04-15-2024 Note HNO ID: [id number] Author: FLORENCIO VILLANUEVA MD Service: ? Author Type: Physician Type: Progress Notes Filed: 04/15/2024 10:28 Note Text: [facility] Hannah Villarreal is a 69 year old male. Patient presents with: Rash: R side of back of neck x 3 days Rash on the back of the right shoulder. Initially had right neck pain (kink) 3 days ago. He took ibuprofen and his rubbed some things (including frankincense). The pain and headache is gone. There is some pruritus. No extension of symptoms to the arm. Review of Systems Constitutional: Negative for fever. Neurological: Negative for numbness and headaches. Objective BP 152/87 Pulse 72 Temp 36.1 ?C (97 ?F) Resp 20 Wt 88 kg (194 lb 0.1 oz) SpO2 98% BMI 26.31 kg/m? Physical Exam Constitutional: General: He is not in acute distress. Eyes: Extraocular Movements: Extraocular movements intact. Pupils: Pupils are equal, round, and reactive to light. Musculoskeletal: Cervical back: Normal range of motion and neck supple. No tenderness. Skin: Comments: 10-15cm faint reddish dry papular patch tight posterior trapezius without vesicle, induration, or ulceration. Neurological: Mental Status: He is alert. ASSESSMENT/PLAN: 1. Contact dermatitis due to other agent, unspecified contact dermatitis type - ICD9: 692.89, ICD10: L25.8 Allergic vs irritant contact dermatitis from topical therapies for musculoskeletal right neck pain. Rash distribution and character are not typical of zoster or a contagious rash. - TRIAMCINOLONE ACETONIDE 0.1 % TOPICAL CREAM He plans to get the shingles vaccine at a pharmacy. Discussed rational for vaccination and dosage schedule. Florencio Villanueva MD [facility] History of Present illness Narrative 04-15-2024 Florencio Villanueva MD - 04/15/2024 10:07 AM EST Note Date & Type Note Facility 04-15-2024 History of Presen t illness Narrative Images from the original note were not included. [facility] Hannah Villarreal is a 69 year old male. Patient presents with: Rash: R side of back of neck x 3 days Rash on the back of the right shoulder. Initially had right neck pain (kink) 3 days ago. He took ibuprofen and his rubbed some things (including frankincense). The pain and headache is gone. There is some pruritus. No extension of symptoms to the arm. Review of Systems Constitutional: Negative for fever. Neurological: Negative for numbness and headaches. Objective BP 152/87 Pulse 72 Temp 36.1 C (97 F) Resp 20 Wt 88 kg (194 lb 0.1 oz) SpO2 98% BMI 26.31 kg/m Physical Exam Constitutional: General: He is not in acute distress. Eyes: Extraocular Movements: Extraocular movements intact. Pupils: Pupils are equal, round, and reactive to light. Musculoskeletal: Cervical back: Normal range of motion and neck supple. No tenderness. Skin: Comments: 10-15cm faint reddish dry papular patch tight posterior trapezius without vesicle, induration, or ulceration. Neurological: Mental Status: He is alert. ASSESSMENT/PLAN: 1. Contact dermatitis due to other agent, unspecified contact dermatitis type - ICD9: 692.89, ICD10: L25.8 Allergic vs irritant contact dermatitis from topical therapies for musculoskeletal right neck pain. Rash distribution and character are not typical of zoster or a contagious rash. - TRIAMCINOLONE ACETONIDE 0.1 % TOPICAL CREAM He plans to get the shingles vaccine at a pharmacy. Discussed rational for vaccination and dosage schedule. Florencio Villanueva MD documented in this encounter [facility] Evaluation note Note Date & Type Note Facility Evaluation note No assessment information availa [facility] Work Phone: Evaluation note Note Date & Type Note Facility Evaluation note Diagnosis Contact dermatitis due to other agent, unspecified contact dermatitis type- Primary documented in this encounter [facility] Summary Purpose Family History No Family History Records FoundNo Family History Records FoundNo Family History Records FoundNo Family History Records Found Advance Directives No Advanced Directives Records FoundNo Advanced Directives Records FoundNo Advanced Directives Records FoundNo Advanced Directives Records Found Chief Complaint and Reason for Visit Chief Complaint HUMERUS L ARM PAIN RX HERE Additional Source Comments (unrecognized sect ion and content) No Status Records FoundNo Status Records FoundNo Status Records FoundNo Status Records Found INFORMATION SOURCE (unrecogn ized section and content) DATE CREATED AUTHOR 08/05/2017 [facility] DATE CREATED AUTHOR AUTHOR'S ORGANIZ ATION 06/24/2020 [facility] ([place]) DATE CREATED AUTHOR AUTHOR'S ORGANIZ ATION 07/17/2023 [facility] DATE CREATED AUTHOR AUTHOR'S ORGANIZ ATION 04/17/2024 [facility] Care Teams (unrecognized sec tion and content) Team Status: Active Member Role Status Dates Dr. Nola Russo , Family Provider Active Dr. Nola Russo , DO Primary Care Provider Active Team Status: Inactive Member Role Status Dates Dr. Nola Russo , Primary Care Provider, Attendin g Provider Active Team Status: Inactive Member Role Status Dates Dr. Nola Russo , Primary Care Provider Active RENUKA McqueenC Attending Provider, Referring Prov ider Active Team Status: Active Member Role Status Dates Dr. Nola Russo , Primary Care Prov ider, Attending Provider, Referring Provider Active Wire Hanger Relationship Specialty Start Date End Date (Historical), No Pcp PCP - General 05/26/17 Goals (unrecognized section and content) Goals may be documented in a n alternate sectionGoals may be documented in an alternate sectionGoals may be documented in an alternate sectionGoals may be documented in an alternate section Source Comments (unrecognize d section and content) In the event this informatio n is protected by the Federal Confidentiality of Alcohol and Drug Abuse Patient Records regulations: The Federal rules restrict any use of the information to criminally investigate or prosecute any alcohol or drug abuse patient.[facility] Reason for Visit (unrecogniz ed section and content) Reason Comments Rash R side of back of ne ck x 3 days FOR RECORDS PERTAINING TO PATIENTS WHO ARE OR HAVE BEEN ENROLLED IN A CHEMICAL DEPENDENCY/SUBSTANCEABUSE PROGRAM, SOME INFORMATION MAY BE OMITTED. This clinical summary was aggregated from multiple sources. Caution should be exercised in using it in the provision of clinical care. This summary normalizes information from multiple sources, and as a consequence, information in this document may materially change the coding, format and clinical context of patient data. In addition, data may be omitted in some cases. CLINICAL DECISIONS SHOULD BE BASED ON THE PRIMARY CLINICAL RECORDS. [facility] [employer] [facility]. provides no warranty or guarantee of the accuracy or completeness of information in this document.
[2024-10-14 12:56] LABS: Hematocrit 42.1 % (40-54); Hemoglobin 14.7 g/dL (13.0-16.5); Immature Granulocytes Count 0.010 X10^3/uL (0.0-0.0); Mean Corp Hgb Conc 34.9 g/dL (32-36); Mean Corpuscular Volume 97.5 fL (80-94); Mean Platelet Vol. 9.6 fl (6.2-12.0); NRBC Flagged by Analyzer 0 % (0-5); Platelet Count 242 K/mm3 (150-450); RBC Distribution Width CV 11.8 % (11.6-14.6); RBC Distribution Width SD 42.0 fl (35.1-43.9); Red Blood Count 4.32 M/mm3 (4.6-6.2); White Blood Count 4.9 K/mm3 (4.4-11.0)
[2024-10-14 13:37] LABS: AST(SGOT) 23 U/L (<=37); Alanine Aminotransfer ALT/SGPT 24 U/L (<=46); Albumin, Serum 4.3 g/dL (3.4-4.8); Alkaline Phosphatase 87 U/L (40-129); Anion Gap 10 (5-15); BUN 15 mg/dL (4-19); BUN/Creat Ratio 18.2 RATIO (10-20); Calcium,Total 9.3 mg/dL (7.6-11.0); Carbon Dioxide 24.8 mmol/L (21.0-32.0); Chloride 104 mmol/L (98-108); Cholesterol 181 mg/dL (<=200); Globulin 2.9 g/dL (2.2-4.2); Glucose 112 mg/dL (70-99); Low Density Lipoprotein Calc. 122 mg/dL; PSA,Total - Annual Screen 0.54 ng/mL (0.02-4.00); Potassium 4.7 mmol/L (3.3-5.1); Triglycerides 97 mg/dL; Very Low Density Lipoprotein 19 mg/dL (5-40); cholesterol:hdl ratio screen 4.59
== END | disposition home or self-care (01) ==
LOC: BFHLAB 09:31
PROVIDERS: PCP Family Medicine; Visit Provider Family Medicine
DX: E78.5 Hyperlipidemia, unspecified (principal); R53.83 Other fatigue; Z12.5 Encounter for screening for malignant neoplasm of prostate
CPT/HCPCS: 36415; 80053; 80061; 84153; 85025; G0103